=== PATIENT | male | born 1990 | race Caucasian/White ===

== ENCOUNTER 2019-07-22 12:14 | Emergency (ER) | payer SELFPAY ==
[~2019-07-22] VITALS: Ht 177.8 cm; Wt 74.8 kg
[2019-07-22 12:16] VITALS: BP 156/90
--- NOTE | 2019-07-22 12:21 | Emergency Room Report ---
History of Present Illness General Chief Complaint: Chest Pain Source: Patient Present Illness HPI 29-year-old male with a history of bipolar disorder comes to the ER with complaints of having 2 out of 10 midsternal nonradiating achy type chest pain that started about 30 minutes prior to arrival when he was standing outside in the cold. Denies shortness of breath, fevers, syncope, vomiting, diarrhea, any other pain complaints, has not tried medications for symptoms. He does report he may just be anxious. Allergies: Coded Allergies: No Known Allergies (Unverified , 07/22/19) Patient History Past Medical History: see triage record Reviewed Nursing Documentation: PMH: Agreed; PSxH: Agreed Nursing Documentation-PMH Hx Hypertension: Yes History Of Psychiatric Problem: Yes - BI-POLAR Review of Systems All Other Systems: negative except mentioned in HPI Physical Exam Vital Signs Date Time Temp Pulse Resp B/P (MAP) Pulse Ox O2 Delivery O2 Flow Rate FiO2 07/22/19 12:04 98.8 98 16 156/90 (112) 98 Room Air Sp02 EP Interpretation: reviewed, normal General Appearance: no apparent distress, alert, non-toxic Head: normocephalic Eyes: bilateral eye normal inspection, bilateral eye PERRL, bilateral eye EOMI ENT: normal ENT inspection, hearing grossly normal, normal pharynx, no angioedema, normal voice, moist mucus membranes Neck: normal inspection, full range of motion, supple, supple/symm/no masses Respiratory: chest non-tender, lungs clear, normal breath sounds, chest symmetrical, palpation of chest normal Cardiovascular #1: normal peripheral pulses, regular rate, rhythm Cardiovascular #2: 2+ radial (R), 2+ radial (L), 2+ dorsalis pedis (R), 2+ dorsalis pedis (L) Gastrointestinal: normal inspection, non tender, soft, no mass, no guarding, no rebound Rectal: deferred Genitourinary: normal inspection, no CVA tenderness Musculoskeletal: back normal, normal range of motion, no calf tenderness, gait/ station normal, non-tender Neurologic: alert, motor strength/tone normal, floor finisher III-XII nml as tested, sensory intact, responsive, speech normal Psychiatric: judgement/insight normal, memory normal, no suicidal/homicidal ideation, anxious Lymphatic: no adenopathy Medical Decision Making Diagnostic Impression: Primary Impression: Chest pain ER Course Differential Diagnosis: ACS, PE, Aortic Dissection, Esophageal rupture, tension PTX Patient's EKG and chest x-ray are unremarkable, as was his clinical presentation , I have an exceedingly low suspicion for acute coronary syndrome pulmonary medicine, aortic dissection, or other serious pathology, he is calm in no distress, I suspect he is seeking secondary gain given that it is raining and cold outside. He was treated with 1 mg of Ativan as well as 325 aspirin. He will be discharged. EKG Diagnostic Results EKG Time: 12:14 EP Interpretation: no stemi Rate: normal Rhythm: NSR ST Segments: no acute changes ASA given to the pt in ED: Yes Rhythm Strip Diag. Results Rhythm Strip Time: 12:21 EP Interpretation: yes Rate: 100 Rhythm: NSR, no PVC's, no ectopy Chest X-Ray Diagnostic Results Chest X-Ray Diagnostic Results : Chest X-Ray Ordered: Yes # of Views/Limited/Complete: 1 View Indication: Chest Pain EP Interpretation: Yes Interpretation: no consolidation, no effusion, no pneumothorax, no acute cardiopulmonary disease Impression: No acute disease Electronically Signed by: Ernesto Tamez MD Last Vital Signs Date Time Temp Pulse Resp B/P (MAP) Pulse Ox O2 Delivery O2 Flow Rate FiO2 07/22/19 12:04 98.8 98 16 156/90 (112) 98 Room Air Disposition: HOME, SELF-CARE Condition: Stable ERNESTO TAMEZ M.D Jul 22, 2019 12:21
[2019-07-22] MEDS ORDERED: LORazepam 1mg tab ORAL ONE (12:30)
--- NOTE | 2019-07-22 12:49 | Diagnostic Imaging Report ---
Indication: Dyspnea Comparison: None A single view chest radiograph was obtained. Findings: Cardiomediastinal appearance is within normal limits for age. The lungs are clear. Pulmonary vascularity is appropriate. The diaphragmatic contour is smooth and costophrenic angles are sharp. No pleural effusions are identified. The bones are unremarkable. Impression: No acute findings
[2019-07-22 12:53] VITALS: BP 129/81
--- NOTE | 2019-07-23 12:49 | Cardiology Report ---
APPROVED REPORT EKG Measurement Heart [id number] Normal sinus rhythm Possible Left atrial enlargement Rightward axis Nonspecific T wave abnormality Abnormal ECG
== END 2019-07-22 12:53 | disposition home or self-care (01) ==
LOC: EDBD 12:14 → EMR 12:15
DX: R07.9 Chest pain, unspecified (principal); I10 Essential (primary) hypertension; F31.9 Bipolar disorder, unspecified
CPT/HCPCS: 71045; 93005; 99283